=== PATIENT | female | born 1980 | race Caucasian/White ===

== ENCOUNTER → 2016-11-06 | Outpatient (CLI) | payer BC, OTHER | LOC: FIMAGING 07:45 | PROVIDERS: ATTEND Internal Medicine | DX: Z82.69 Family history of other diseases of the musculoskeletal system and connective tissue (principal) ==

== ENCOUNTER → 2017-05-27 | Outpatient (CLI) | payer BC, OTHER | LOC: BMCIMAGING 14:13 | PROVIDERS: ATTEND Internal Medicine | DX: J98.09 Other diseases of bronchus, not elsewhere classified (principal) ==

== ENCOUNTER 2017-08-04 07:38 | Day surgery (SDC) | payer BC ==
[2017-08-04] MEDS ORDERED: LIDOCAINE 1% 2 ML INJ ID PRN (07:51)
[2017-08-04] MEDS ORDERED: LR 1,000 ML IV ONE (07:51)
--- NOTE | 2017-08-04 08:58 | PDGENHP ---
History & Physical Chief Complaint: abdominal bloating, change in bowel habits, hematochezia History of Present Illness: 36 year old woman with change in bowel habits. Abdominal bloating. Lower abdominal pain. Episodes of hematochezia. Pertinent Past, Social, Family History: Negative Relevant Physical Exam: Lungs clear. Cardiac normal S1S2. Abdomen soft normal BS, no HSM Cardiorespiratory Assessment: Normal
--- NOTE | 2017-08-04 09:18 | PDANEPAE ---
ANE History of Present Illness Blood in stool ANE Past Medical History - Pulmonary History Hx Oxygen in Use at Home: No Hx Sleep Apnea: No Sleep Apnea Screening Result - Last Documented: Negative - Endocrine History Hx Diabetes: No - Chronic Pain History Chronic Pain: No ANE Review of Systems Review of Systems: ANE Patient History - Allergies Allergies/Adverse Reactions: No Known Allergies Allergy (Verified 12/30/12 21:28) - Home Medications Home Medications: Vit27&Calcium/Iron/FA [] 1 each PO DAILY 12/30/12 [Last Taken 02/18/16] Cytomel DAILY06 08/01/17 [Last Taken 08/04/17] - NPO status NPO Since - Liquids (Date): 08/03/17 NPO Since - Liquids (Time): 23:30 NPO Since - Solids (Date): 08/03/17 NPO Since - Solids (Time): 08:30 - Smoking Hx Smoking Status: Never smoked ANE Labs/Vital Signs - Vital Signs Blood Pressure: 115/75 Heart Rate: 79 Respiratory Rate: 18 O2 Sat (%): 95 Height: 172.72 cm Weight: 102.058 kg ANE Physical Exam - Airway Neck exam: FROM Mallampati Score: Class 2 Mouth exam: normal dental/mouth exam - Pulmonary Pulmonary: no respiratory distress - Cardiovascular Cardiovascular: regular rate and rhythym - ASA Status ASA Status: II ANE Anesthesia Plan Anesthesia Plan: MAC
[2017-08-04] MEDS ORDERED: PROPOFOL/EMULSION 500 MG/50 ML BOTTLE IV ONE (09:28)
[2017-08-04] MEDS ORDERED: LIDOCAINE 2% 5 ML SDV ONE (09:29)
[2017-08-04] MEDS ORDERED: PROPOFOL 200 MG/20 ML VIAL ONE ×2 (09:43→09:59)
--- NOTE | 2017-08-04 09:49 | GIREPORT ---
[facility] Surgical Services - Endoscopy Department Patient Name: Alee Mazariegos Procedure Date: 08/04/2017 9:15 AM Patient Type: Outpatient Attending MD/ ER Physician: Wilton Greoc MD Procedure: Upper GI endoscopy Indications: Epigastric abdominal pain, Generalized abdominal pain, Functional Dyspe psia, Hematochezia, Abdominal bloating Providers: Wilton Greco MD Medicines: Sedation Required Anesthesia Staff Assistance Complications: No immediate complications. Description of Procedure: After obtaining informed consent, the endoscope was passed under direct vision. Throughout the procedure, the patient's blood pressure, pulse, and oxygen saturations were monitored continuously. The Endoscope was intro duced through the mouth, and advanced to the second part of duodenum. The Colonoscope with irrigation channel was introduced through the and adva nced to the. The upper GI endoscopy was accomplished without difficulty. The patient tolerated the procedure well. Findings: The examined esophagus was normal. The entire examined stomach was normal. Biopsies were taken with a cold forceps for histology. The examined duodenum was normal. Biopsies for histology were taken wit h a cold forceps for evaluation of celiac disease. Estimated Blood Loss: Estimated blood loss: none. Post Op Diagnosis: - Normal esophagus. - Normal stomach. Biopsied. - Normal examined duodenum. Biopsied. Recommendation: - Await pathology results. - Perform a colonoscopy today. - Thank you for allowing me to participate in the care of your patient. Attending Participation: I personally performed the entire procedure. Wilton Greco MD Wilton Greco MD 08/04/2017 9:48:46 AM This report has been signed electronicallyStnany Greco MD Number of Addenda: 0 Note Initiated On: 08/04/2017 9:15 AM [email or web address]
[2017-08-04] MEDS ORDERED: NALOXONE HCL 0.4 MG/ML INJ IVP PRN (10:07)
[2017-08-04] MEDS ORDERED: fentaNYL 100 MCG/2 ML INJ IVP PRN (10:07)
[2017-08-04] MEDS ORDERED: ONDANSETRON 4 MG/2 ML VIAL IVP PRN (10:07)
--- NOTE | 2017-08-04 10:17 | POSTANESTH ---
Post Anesthetic Evaluation Cardiovascular Status: Normal, Stable Respiratory Status: Normal, Stable Level of Consciousness/Mental Status: Can Participate in Eval Pain Control: Adequate, Prn Tx Ordered Nausea/Vomiting Control: Adequate, Prn Tx Ordered Complications Possibly Related to Anesthesia: None Noted
--- NOTE | 2017-08-04 10:26 | GIREPORT ---
[facility] Surgical Services - Endoscopy Department Patient Name: Alee Mazariegos Procedure Date: 08/04/2017 10:14 AM Patient Type: Outpatient Attending MD/ ER Physician: Wilton Greco MD Procedure: Colonoscopy Indications: Generalized abdominal pain, Lower abdominal pain, Clinically significan t diarrhea of unexplained origin, Change in bowel habits Providers: Wilton Greco MD Medicines: Sedation Required Anesthesia Staff Assistance Complications: No immediate complications. Description of Procedure: After obtaining informed consent, the scope was passed under direct vis ion. Throughout the procedure, the patient's blood pressure, pulse, and oxyg en saturations were monitored continuously. The Colonoscope with irrigatio n channel was introduced through the anus and advanced to the terminal il eum. The colonoscopy was performed without difficulty. The patient tolerated the procedure well. The quality of the bowel preparation was good. The term inal ileum, ileocecal valve, appendiceal orifice, and rectum were photograph ed. Findings: The terminal ileum appeared normal. A 2 mm polyp was found in the sigmoid colon. The polyp was sessile. The polyp was removed with a cold biopsy forceps. Resection and retrieval w ere complete. The colon (entire examined portion) appeared normal. Biopsies for histo logy were taken with a cold forceps from the ascending colon for evaluation of microscopic colitis. Estimated Blood Loss: Estimated blood loss: none. Post Op Diagnosis: - The examined portion of the ileum was normal. - One 2 mm polyp in the sigmoid colon, removed with a cold biopsy force ps. Resected and retrieved. - The entire examined colon is normal. Biopsied. - Symptoms c/w IBS Recommendation: - Patient has a contact number available for emergencies. The signs and symptoms of potential delayed complications were discussed with the pat ient. Return to normal activities tomorrow. Written discharge instructions we re provided to the patient. - Low FODMAP. - Continue present medications. - Await pathology results. - Repeat colonoscopy for surveillance based on pathology results. - If the pathology report reveals adenomatous tissue, then repeat the colonoscopy for surveillance in 5 years. - If the pathology report indicates hyperplastic polyp, then repeat colonoscopy for screening purposes at age 50. - Return to GI office after studies are complete. - Thank you for allowing me to participate in the care of your patient. Attending Participation: I personally performed the entire procedure. Wilton Greco MD Wilton Greco MD 08/04/2017 10:26:01 AM This report has been signed electronicallyStnany Greco MD Number of Addenda: 0 Note Initiated On: 08/04/2017 10:14 AM [email or web address]}
[2017-08-04 10:57] VITALS: BP 113/72; PULSE 67
[2017-08-04 11:28] VITALS: RESP 13; O2SAT 99
[2017-08-04 11:50] VITALS: TEMP 98.3
== END 2017-08-04 12:00 | disposition home or self-care (01) ==
LOC: FSGY 07:38
PROVIDERS: ATTEND Internal Medicine Gastroenterology
DX: K58.9 Irritable bowel syndrome, unspecified (principal); D12.5 Benign neoplasm of sigmoid colon
CPT/HCPCS: J2704

== ENCOUNTER 2018-02-22 11:31 | Emergency (ER) | payer BC ==
--- NOTE | 2018-02-22 12:38 | EDPHY ---
H & P Smoking Status: Never smoked Time Seen by Provider: 02/22/18 11:59 HPI/ROS: CHIEF COMPLAINT: Right great toe injury HISTORY OF PRESENT ILLNESS: 37-year-old female via private vehicle complaining of acute right great toe injury after she dropped a heavy chair onto said location yesterday. Able to bear weight albeit with pain. No discoloration. This was accidental PRIMARY CARE PROVIDER: REVIEW OF SYSTEMS: 10 systems reviewed and are negative with exception of illness mentioned in the history of present illness PHYSICAL EXAM (Prior to examination, patient consented to physical exam, hands were washed and my usual and customary physical exam procedures followed) 1) GENERAL: Well-developed, well-nourished, alert and oriented. Appears to be in no acute distress. 2) HEAD: Normocephalic 3) HEENT: sclera anicteric 4) LUNGS: Breathing comfortably. 5) SKIN: Intact no laceration. 6) MUSCULOSKELETAL: Tender to palpation distal phalanx right great toe. Nail [place] in place removed revealing less than 5% proximal subungual hematoma Pain with flexion extension at the MTP and IP. No malrotation. No shortening. 7) NEUROLOGIC: Full sensation. (Jelena Mason) Constitutional: Initial Vital Signs Temperature (C) 36.8 C 02/22/18 11:34 Heart Rate 74 02/22/18 11:34 Respiratory Rate 18 02/22/18 11:34 Blood Pressure 143/84 H 02/22/18 11:34 O2 Sat (%) 100 02/22/18 11:34 O2 Delivery Mode Room Air Allergies/Adverse Reactions: No Known Allergies Allergy (Verified 02/22/18 11:33) Home Medications: Medication Instructions Recorded Vit27&Calcium/Iron/FA 1 each PO DAILY 12/30/12 [] Cytomel DAILY06 08/01/17 oxyCODONE/APAP 5/325 [Percocet 1 tab PO Q6 #7 tab 02/22/18 5/325] MDM/Departure - MDM Imaging Results: Images reviewed myself (Jelena Mason) Procedures: Procedure: Splint A garcía-tape and postop shoe splint was applied by ER installer technician. After application of the splint I returned and re-examined the patient. The splint was adequately immobilizing the joint and distal to the splint the patient's circulation and sensation were intact. Patient shows no signs of compartment syndrome. Was given orthopedic precautions. (Jelena Mason) ED Course/Re-evaluation: I did not see this patient while she was in the emergency department. However her care was discussed with the PA while the patient was in the department. I agree with treatment plan and management (QuincyGeovany Mccarty) - Depart Disposition: Home, Routine, Self-Care Clinical Impression: Injury of right great toe Condition: Good Instructions: Crush Injury (ED) Additional Instructions: Return to the ER immediately if you experience discoloration, have worsening pain, numbness, tingling, or any other symptoms that concern you. If you received x-rays in the emergency department today, be advised, that ligamentous , tendon, muscular, and other non-bony injury cannot be fully ruled out. Try to keep your affected extremity elevated above the level of your chest, and keep cold packs on the affected area, for the next 48 hours. Prescriptions: oxyCODONE/APAP 5/325 [Percocet 5/325] 1 tab PO Q6 #7 tab Referrals: Mina Santiago DPM [Doctor of Podiatric Medicine] - 2-3 days, call for appt.
[2018-02-22 13:13] VITALS: BP 132/67
== END 2018-02-22 13:13 | disposition home or self-care (01) ==
DX: S90.111A Contusion of right great toe without damage to nail, initial encounter (principal); W23.1XXA Caught, crushed, jammed, or pinched between stationary objects, initial encounter
CPT/HCPCS: L4386

== ENCOUNTER → 2018-11-06 | Outpatient (CLI) | payer BC | LOC: FIMAGING 08:00 ==